=== PATIENT | female | born 1970 | race Caucasian/White ===

== ENCOUNTER 2024-11-25 17:03 | Emergency (ER) | payer OTHER, SELFPAY ==
[2024-11-25 17:06] VITALS: BP 232/120
[2024-11-25 17:14] VITALS: BMI 40.6
[2024-11-25 17:54] LABS: % Basophils 0.4 % (0-2); % Eosinophils 0.5 % (0-6); % Immature Granulocytes 0.6 % (0-0.5); % Lymphocytes 21.5 % (20.5-51.1); % Monocytes 8.4 % (1.7-9.3); % Neutrophils 68.6 % (42.2-75.2); Absolute Basophils 0.1 10^3/uL (0-0.2); Absolute Eosinophils 0.1 10^3/uL (0-0.7); Absolute Immature Granulocytes 0.1 10^3/uL (0-0.05); Absolute Lymphocytes 2.8 10^3/uL (1.2-3.4); Absolute Monocytes 1.1 10^3/uL (0.1-0.6); Absolute Neutrophils 8.8 10^3/uL (1.4-6.5); Hemoglobin 13.7 g/dL (12.0-16.0); Mean Corp Hgb Conc. 34.3 g/dL (33.0-37.0); Mean Corpuscular Hgb 32.1 pg (27.0-31.0); Mean Corpuscular Volume 93.7 fL (81.0-99.0); Mean Platelet Volume 9.1 fL (7.4-10.4); Nucleated Red Blood Cells % 0 %; Platelet Count 275 10^3/uL (130-400); Red Blood Cell Count 4.27 10^6/uL (4.20-5.40); Red Cell Dist. Width 13.2 % (11.5-14.5); White Blood Cell Count 12.8 10^3/uL (4.8-10.8)
[2024-11-25 18:12] LABS: ALT (SGPT) 37 U/L (0-35); AST (SGOT) 42 U/L (14-36); Albumin 4.4 g/dl (3.5-5.0); Alkaline Phosphatase 83 U/L (38-126); Blood Urea Nitrogen 20 mg/dl (7-17); Calcium 9.3 mg/dl (8.4-10.2); Carbon Dioxide 25 mmol/L (22-30); Chloride 105 mmol/L (98-107); Estimated Creatinine Clearance 90 ml/min; Glucose 115 mg/dl (70-99); Sodium 141 mmol/L (135-145); Total Bilirubin 0.8 mg/dl (0.2-1.3); Total Protein 7.1 g/dl (6.3-8.2); eGFR > 60.00
--- NOTE | 2024-11-25 18:16 | ED.GENMED ---
History of Present Illness
General
Chief Complaint: Blood Pressure Problem
Source: patient
Exam Limitations: none
Time Seen by Provider: 11/25/24 17:34
Nursing documentation reviewed up to this point in time: agreed with
History of Present Illness
History of Present Illness:
The patient is a pleasant 54-year-old female who reports that she was out shopping and developed a right-sided nosebleed. Patient reports she went to the bathroom when noticed large blood clots coming out of her nose. Store employees were notified
and called 911. When paramedics arrived on the scene, the patient was noted to have high blood pressure I was encouraged to come to the ED for evaluation. Patient reports that she has not seen a doctor in many years and has not had her blood
pressure checked for almost 10 years. She reports the nosebleed is stopped. She denies headache, vision changes, chest pain or shortness of breath. Patient admits she does feel slightly anxious being here because she did not want to have to be
here. Patient is a former smoker. She denies drug use. She reports she drinks alcohol each night while watching TV. Patient reports she is a family history of high blood pressure, as her mother was hypertensive. She denies taking any medication.
Past History
Past History
ED Past Medical History: Other
ED Past Surgical History: and Orthopedic
Social History
Tobacco: Former smoker
Alcohol: Daily
Drug: None
Personal:
Living: with family
Employment: Other
Family History
Family History: Hypertension
Review of Systems
Review of Systems
Allergies reviewed?: Yes
All Other Systems: ROS reviewed and negative except as documented in HPI and ROS
Constitutional: Reports no symptoms
EENT: Reports other
Respiratory: Reports no symptoms
Cardiac: Reports no symptoms
ABD/GI: Reports no symptoms
: Reports no symptoms
Musculoskeletal: Reports no symptoms
Skin: Reports no symptoms
Neurological: Reports no symptoms
Endocrine: Reports no symptoms
Hematologic/Lymphatic: Reports no symptoms
Psychiatric: Reports no symptoms
Phy Exam
Physical Exam
Physical Exam:
Physical Exam
General: Patient appears slightly anxious but is nontoxic and well-appearing
Neck: supple. no meningeal signs. normal psoterior pharynx
Heart: Tachycardic
Lungs: no acute respiratory distress. clear bilaterally
Abdomen: normal bowel sounds. not tender. no CVAT
Neuro: alert and oriented. no focal neurological deficits. Extraocular muscles intact
Skin: no rash
Psychiatric: well kept. interactive and cooperative
Extremities: no edema. no calf tenderness. negative homans. good distal pulses
Course
Orders/Labs/Results
Orders:
Orders
11/25/24 17:49
Alcohol Urgent
CMP [Comprehensive Metabolic Panel] Urgent
Complete Blood Count/With Diff Urgent
TSH Urgent
Comment: ADD ON
11/25/24 17:58
Electrocardiogram (*1) Urgent
Reason for Study: Palpitations
EKG- Treatment ONCE
11/25/24 18:01
Add On- LAB Urgent
Tests Added?: TSH
11/25/24 18:38
Metoprolol [Lopressor] 25 mg PO NOW STA
11/25/24 19:40
Add On- LAB Urgent
Tests Added?: alcohol
11/25/24 20:06
Amlodipine [Norvasc] 5 mg PO NOW STA
11/25/24 20:14
Urine Drug Abuse Screen Urgent
Date Specimen was Collected: 11/25/24
Time Specimen was Collected: 19:51
Abnormal Lab Results
11/25/24
17:49
WBC 12.8 H 10^3/uL
(4.8-10.8)
MCH 32.1 H pg
(27.0-31.0)
Abs Immat Gran (auto) 0.1 H 10^3/uL
(0-0.05)
Absolute Neuts (auto) 8.8 H 10^3/uL
(1.4-6.5)
Absolute Monos (auto) 1.1 H 10^3/uL
(0.1-0.6)
Immature Gran % 0.6 H %
(0-0.5)
BUN 20 H mg/dl
(7-17)
Glucose 115 H mg/dl
(70-99)
AST 42 H U/L
(14-36)
ALT 37 H U/L
(0-35)
11/25/24 17:49
11/25/24 17:49
Vital Signs
Initial and Last Documented VS:
Initial Vital Signs
Temp Pulse Resp BP Pulse Ox
98.4 F 113 18 232/120 97
11/25/24 17:06 11/25/24 17:06 11/25/24 17:06 11/25/24 17:06 11/25/24 17:06
Last Documented Vital Signs
Temp Pulse Resp BP Pulse Ox
98.4 F 102 18 190/94 97
11/25/24 17:06 11/25/24 19:10 11/25/24 17:06 11/25/24 19:10 11/25/24 17:06
MDM/Problems Addressed
Differential Diagnosis Includes:
Pretense of emergency, hypertensive urgency, thyroid crisis
MDM/Problems Addressed:
Patient presents with acute hypertension and resolved nosebleed
*Pulse Oximetry
Patient hypoxic: no
*EKG
Interpreted by ED Provider?: Yes
Interpretation: abnormal
Comparison EKG: no comparison EKG present
Rate: normal
[place]: normal axis
Interval: normal interval
QRS Pattern: normal QRS
Ischemia: non-specific ST changes
*Transport Nurse Interpretation
Rate: tachycardiac
Interpretation: abnormal
Rhythm: sinus
*Critical Care Note
Total Time (30-74mins, 75-104mins- exclusive of procedures): Not Applicable
Data Reviewed
Source: patient
Patient Management
Social determinants of health affecting care: Living situation and Strong social support
Discussion with other providers: Other (Spoke to Harrison Cottrell from cardiology in regards to choice of blood pressure medication for the patient. He recommended hydrochlorothiazide and Norvasc. However, because patient tachycardic, he was
agreeable to metoprolol.)
Escalation/DeEscalation of care consider admission/obs:
9:00 pm Patient continues to be asymptomatic and says she feels extremely well and comfortable. She really would like to go home. Patient's blood pressure has gotten down to 185/90s. Certainly her blood pressure is still high, however, it has
improved from prior and I suspect her blood pressure has been very elevated for a long time. Because patient's blood pressure is improved in regards to what she started with and she feels well, decision made to let patient go home. I told patient
that she absolutely must follow-up with her doctor in about a week to have your blood pressure rechecked and have a blood pressure conversation with her doctor. Patient seems reasonable and agreeable to this. I told patient that high blood
pressure can lead to kidney disease, stroke and heart issues. Patient understands all this.
ED Attending Note
-
Portions of this chart may have been created with voice recognition software.� Occasional wrong word or��sound alike� substitutions may have occurred due to the inherent limitations of voice recognition software.
Discharge Plan
Departure
Patient Disposition: Home (Routine Discharge)
Date of Disposition: 11/25/24
Time of Disposition: 21:02
Patient with high blood pressure during this ER visit?: Yes
Condition: Good
Covid-19: Not Applicable
Discharge Problem:
BP (high blood pressure)
Instructions: High Blood Pressure (DC), BLOOD PRESSURE
Prescriptions:
New
metoprolol succinate 25 mg tablet extended release 24 hr
25 mg PO DAILY Qty: 30 0RF
Referrals:
Lito Christine CRNP [Family Provider] -
Activity Restrictions/Additional Instructions:
It is so important that you follow-up with your doctor in about 1 week to have your blood pressure rechecked. Please let your doctor know about the medication that we started you on, which is called metoprolol.
Interventions
Interventions:
*General Assessment Last Done: 11/25/24 17:31
*Neglect/Abuse Screening Last Done: 11/25/24 17:31
*ED- Fall Risk Assessment Last Done: 11/25/24 17:31
*ED COVID-19 Vaccine History Last Done: 11/25/24 17:31
Discharge Date and Time
Print Language: [id number]
[2024-11-25] MEDS: LOPRESSOR 25 MG PO (19:10)
[2024-11-25 19:56] LABS: Alcohol None Detected
[2024-11-25 20:00] VITALS: BP 190/91
[2024-11-25 20:40] LABS: Amphetamines Negative (Negative); Barbiturates Negative (Negative); Benzodiazepines Negative (Negative); Buprenorphine Negative (Negative); Cocaine Negative (Negative); Marijuana Negative (Negative); Methadone Negative (Negative); Methamphetamines Negative (Negative); Opiates Negative (Negative); Phencyclidine Negative (Negative); Tricyclic Antidepressants Negative (Negative)
[2024-11-25 21:39] LABS: TSH 0.84 uIU/ml (0.47-4.68)
== END 2024-11-25 21:10 | disposition home or self-care (01) ==
LOC: EMR 17:03
PROVIDERS: EMERGENCY PHYSICIAN Emergency Medicine; FAMILY PHYSICIAN Chiropractor
DX: I10 Essential (primary) hypertension (principal); Z87.891 Personal history of nicotine dependence
CPT/HCPCS: 99284; 80053; 80306; 82077; 84443; 85025; 93005

== ENCOUNTER → 2025-04-13 15:09 | Outpatient (REF) | payer OTHER, SELFPAY | LOC: HWRCS 15:09 | PROVIDERS: ATTENDING PHYSICIAN Family Medicine | DX: I16.0 Hypertensive urgency (principal) | CPT/HCPCS: 93306 ==

== ENCOUNTER → 2025-07-02 10:30 | Outpatient (REF) | payer OTHER, SELFPAY | LOC: RCS 10:30 | PROVIDERS: ATTENDING PHYSICIAN Internal Medicine Cardiovascular Disease; FAMILY PHYSICIAN Family Medicine | DX: R06.09 Other forms of dyspnea (principal) | CPT/HCPCS: 93017 ==

== ENCOUNTER → 2025-07-11 08:14 | Outpatient (REF) | payer OTHER, SELFPAY | LOC: RCS 08:14 | PROVIDERS: ATTENDING PHYSICIAN Internal Medicine Cardiovascular Disease; FAMILY PHYSICIAN Family Medicine | DX: R06.09 Other forms of dyspnea (principal) | CPT/HCPCS: 93306 ==